=== PATIENT | female | born 1985 | race Caucasian/White ===

== ENCOUNTER 2021-03-17 22:19 | Emergency (ER) | payer OTHER ==
[2021-03-17 22:26] VITALS: BP 119/77; PULSE 65; TEMP 97.8; BMI 29.2
[2021-03-17] MEDS ORDERED: ACETAMINOPHEN 325 MG TABLET (FP) PO ONE (23:43)
[2021-03-17] MEDS ORDERED: ACETAMINOPHEN 325 MG TABLET (FP) ONE (23:54)
== END 2021-03-18 00:29 | disposition home or self-care (01) ==
LOC: JER 22:19
DX: M26.609 Unspecified temporomandibular joint disorder, unspecified side (principal)
CPT/HCPCS: 99283-25

== ENCOUNTER 2022-05-23 14:09 | Emergency (ER) | payer SELFPAY ==
[2022-05-23 14:28] VITALS: BP 117/76; PULSE 71; RESP 19; TEMP 98.6; BMI 29.9
[2022-05-23] MEDS ORDERED: KETOROLAC TROMETHAMINE 60 MG/2 ML VIAL IM ONE (16:27)
[2022-05-23] MEDS ORDERED: KETOROLAC TROMETHAMINE 30 MG/1 ML VIAL ONE (16:38)
== END 2022-05-23 19:02 | disposition home or self-care (01) ==
LOC: JERFT 14:09
PROC: 3E023GC Introduction of Other Therapeutic Substance into Muscle, Percutaneous Approach (ICD-10-PCS; principal; 2022-05-23)
DX: M79.672 Pain in left foot (principal)
CPT/HCPCS: 73630-TC-LT; 99284-25